=== PATIENT | male | born 1990 | race Caucasian/White ===

== ENCOUNTER 2022-05-06 14:21 | Emergency (ER) | payer OTHER ==
[~2022-05-06] VITALS: Ht 180.3 cm; Wt 86.2 kg
== END 2022-05-06 15:18 | disposition home or self-care (01) ==
LOC: EEVIPCON 14:21 → EDH 14:21
DX: S61.112A Laceration without foreign body of left thumb with damage to nail, initial encounter (principal); R55 Syncope and collapse; X58.XXXA Exposure to other specified factors, initial encounter; Y93.89 Activity, other specified; Y92.89 Other specified places as the place of occurrence of the external cause; Y99.8 Other external cause status
CPT/HCPCS: 99282